=== PATIENT | female | born 1955 | race Caucasian/White ===

== ENCOUNTER → 2016-10-05 | Outpatient (CLI) | END | disposition home or self-care (01) | DX: M54.16 Radiculopathy, lumbar region (principal); M54.5 Low back pain; M51.36 Other intervertebral disc degeneration, lumbar region; Z96.642 Presence of left artificial hip joint | CPT/HCPCS: 73502; Z7500 ==

== ENCOUNTER → 2017-11-16 | Outpatient (CLI) | END | disposition home or self-care (01) ==